=== PATIENT | female | born 1960 | race Caucasian/White ===

== ENCOUNTER → 2020-11-10 12:50 | Outpatient (BNVA) | payer MEDICAID, SELFPAY | PROVIDERS: PCP Internal Medicine; Visit Provider Physician Assistant ==

== ENCOUNTER → 2020-11-16 08:17 | Outpatient (BNVA) | payer MEDICAID, SELFPAY | PROVIDERS: PCP Internal Medicine; Visit Provider Surgery ==

== ENCOUNTER → 2020-11-23 08:02 | Outpatient (BNVA) | payer MEDICAID, SELFPAY | PROVIDERS: PCP Internal Medicine; Visit Provider Surgery ==

== ENCOUNTER 2020-12-03 07:51 | Outpatient (REF) | payer MEDICAID, SELFPAY ==
--- NOTE | ~2020-12-03 | US_ITS ---
EXAMINATION: US COMPLETE ABDOMEN WITH LIVER ELASTOGRAPHY CLINICAL INFORMATION: Morbid/severe obesity due to excess calories. COMPARISON: None. TECHNIQUE: Real-time imaging of the abdominal viscera. Noninvasive ultrasound liver fibrosis assessment is performed using Negar ElastPQ point quantification shear wave elastography (pSWE) with a C5-2 MHz transducer. Multiple elastography samples are obtained. FINDINGS: PANCREAS: Normal. The visualized pancreatic head and body are normal in appearance. The remainder of the pancreas is obscured from visualization by the overlying bowel gas. ABDOMINAL AORTA: The proximal, middle, and distal aortic segments are normal in caliber. INFERIOR VENA CAVA: Visualized portions are normal. LIVER: Normal. The liver demonstrates normal size, contour and diffuse increased echogenicity. There is an anechoic cyst measuring 2.8 x 2.4 x 2.8 cm. The right lobe measures 21.5 cm in length. The left lobe measures 9.3 cm in length. Portal flow is hepatopedal. Shear wave liver elastography median stiffness is 1.1 m/s (reference: normal median stiffness is 1.3 m/s or less). IQR/median stiffness to assess sampling precision is 0.16 (reference: good quality data set is IQR/median stiffness of 0.15 or less). GALLBLADDER: Normal. The gallbladder is physiologically distended without evidence of stones, sludge, polyps, wall thickening or pericholecystic fluid. COMMON BILE DUCT: Normal in caliber measuring 0.4 cm in diameter. RIGHT KIDNEY: Normal. No hydronephrosis. No renal calculi or focal parenchymal lesions. The kidney measures 11.9 cm in maximum dimension. LEFT KIDNEY: Normal. No hydronephrosis. No renal calculi or focal parenchymal lesions. The kidney measures 12.3 cm in maximum dimension. SPLEEN: Normal. The spleen measures 13.5 cm in maximum dimension. FREE FLUID: None. US/US abdomen comp w elastography IMPRESSION: 1. Hepatic steatosis with anechoic cyst right hepatic lobe. 2. The rest of the abdominal ultrasound is unremarkable. 3. Liver elastography: Median stiffness measures 1.1 m/s suggestive of high probability normal. REFERENCE: Society of Radiologists in Ultrasound Liver Stiffness Thresholds (2020): LIVER STIFFNESS THRESHOLDS: *Liver Stiffness equal or less than 1.3 m/s: High probability of being normal. *Liver Stiffness less than 1.7 m/s: In the absence of other known clinical signs, rules out compensated advanced chronic liver disease. *Liver Stiffness 1.7-2.1 m/s: Suggestive of compensated advanced chronic liver disease but need further test for confirmation. *Liver Stiffness over 2.1 m/s: Rules in compensated advanced chronic liver disease. *Liver Stiffness over 2.4 m/s: Suggestive of clinically significant portal hypertension. QUALITY OF DATA SET: *IQR/Median value equal or less than 0.15 implies a quality data set. *IQR/Median value over 0.15 implies a poor quality data set. SIGNIFICANT CHANGE FROM PRIOR EXAM: Significant change if liver stiffness measurement is 10% or greater from prior exam. OTHER CONSIDERATIONS: The stage of liver fibrosis may be overestimated in the setting of acute hepatitis, liver inflammation, elevated liver function tests, hepatic vascular congestion, obstructive cholestasis, non-fasting state, and infiltrative diseases such as amyloidosis and lymphoma. In some patients with NAFLD, the liver stiffness thresholds for compensated advanced chronic liver disease may be lower. In causes other than viral hepatitis and NAFLD, liver stiffness thresholds are not well established.
--- NOTE | ~2020-12-03 | XR_ITS ---
EXAMINATION: XR CHEST CLINICAL INFORMATION: Morbid obesity due to excess calories. COMPARISON: None TECHNIQUE: 2 views of the chest were obtained. FINDINGS: The lungs are well expanded. There is no focal consolidation, edema, or effusion. No pneumothorax. The cardiomediastinal silhouette is within normal limits. No acute osseous abnormality. XR/XR chest 2V IMPRESSION: Clear lungs.
--- NOTE | 2020-12-03 08:40 | ECG_ITS ---
Test Reason : E66.01 Blood Pressure : / mmHG Vent. Rate : 066 BPM Atrial Rate : 066 BPM P-R Int : 202 ms QRS Dur : 090 ms QT Int : 414 ms P-R-T Axes : 035 -09 028 degrees QTc Int : 434 ms Normal sinus rhythm Normal ECG No previous ECGs available Referred By: Bo Ludwig Electronically Signed By:Keyur Duggan
[2020-12-03 09:53] LABS: MANUAL DIFF FLAG NO
[2020-12-03 10:03] LABS: Basophils Percent Auto 0.7 % (0-2); Eosinophils Absolute Auto 0.2 X10*3/uL (0.0-0.4); Eosinophils Percent Auto 3.8 % (0-4); Hematocrit 40.9 % (37-47); Hemoglobin 13.7 g/dl (12.0-16.0); Imm Gran Abs Auto 0.01 X10*3/uL (0.00-0.03); Imm Gran Pct Auto 0.2 % (0.0-0.4); Lymphocytes Percent Auto 16.3 % (20-40); Mean Corpuscular HGB Conc 33.5 g/dl (31.0-35.0); Mean Corpuscular Hemoglobin 32.2 pg (27.0-33.0); Mean Corpuscular Volume 96.2 fL (80-98); Monocytes Absolute Auto 0.5 X10*3/uL (0.1-1.2); Monocytes Percent Auto 7.9 % (2-11); Neutrophils Absolute Auto 4.3 X10*3/uL (2.0-8.3); Neutrophils Percent Auto 71.1 % (45-73); Platelet Count 233 X10*3/uL (160-400); Red Blood Count 4.25 X10*6/uL (4.20-5.50); Red Cell Distribution Width 12.7 % (11.0-16.0); White Blood Count 6.1 X10*3/uL (4.8-10.8)
[2020-12-03 10:25] LABS: Alanine Aminotransferase 37 U/L (0-31); Albumin Level 4.6 g/dL (3.5-5.0); Alkaline Phosphatase 39 U/L (39-117); Anion Gap 16 (12-20); Aspartate Amino Transferase 24 U/L (5-31); Bilirubin Total 0.7 mg/dL (0.0-1.0); Blood Urea Nitrogen 30 mg/dL (9-16); C Reactive Protein 0.46 mg/dL (< or = 0.50); Calcium 9.3 mg/dL (8.4-10.2); Carbon Dioxide 26 mmol/L (22-29); Chloride 105 mmol/L (96-108); Cholesterol 207 mg/dL; Estimated Glomerular Filt Rate > 60; Glucose Random 95 mg/dL (60-115); HDL Cholesterol 50 mg/dL; LDL Cholesterol Calculated 142 mg/dl; Sodium 143 mmol/L (135-145); Total Protein 7.6 g/dL (6.5-8.0); Triglycerides 78 mg/dL
[2020-12-03 10:54] LABS: Estimated Average Glucose 105 mg/dL; Hemoglobin A1c % 5.3 %
[2020-12-03 11:00] LABS: Vitamin D 25-OH Total 26.1 ng/mL (>30)
[2020-12-03 11:21] LABS: Folate 14.8 ng/mL (> or = 4.0); Vitamin B12 203 pg/mL (200-900)
[2020-12-03 11:30] LABS: Ferritin 501 ng/mL (10-250)
[2020-12-04 07:02] LABS: Insulin Level Total 24.8 uIU/mL
[2020-12-04 18:21] LABS: Calcium (PTHI) 9.1 mg/dL (8.6-10.4); PTHI 41 pg/mL (14-64)
[2020-12-07 00:57] LABS: Zinc 61 mcg/dL (60-130)
[2020-12-07 06:27] LABS: Vitamin B1 7 nmol/L (8-30)
[2020-12-07 12:21] LABS: Vitamin A 49 mcg/dL (38-98)
== END 2020-12-03 07:52 | disposition home or self-care (01) ==
LOC: HO.US 07:51
PROVIDERS: PCP Internal Medicine; Visit Provider Surgery
DX: Z01.818 Encounter for other preprocedural examination (principal); E66.01 Morbid (severe) obesity due to excess calories; K21.9 Gastro-esophageal reflux disease without esophagitis; I10 Essential (primary) hypertension; G35 Multiple sclerosis
CPT/HCPCS: 36415; 71046; 76705; 76981; 80053; 80061; 82306; 82607; 82728; 82746; 83036; 83525; 83970; 84425; 84443; 84590; 84630; 85025; 86140; 93005

== ENCOUNTER → 2020-12-14 08:07 | Outpatient (BNVA) | payer MEDICAID, SELFPAY | PROVIDERS: PCP Internal Medicine; Visit Provider Surgery ==

== ENCOUNTER → 2020-12-21 09:02 | Outpatient (BNVA) | payer MEDICAID, SELFPAY | PROVIDERS: PCP Internal Medicine; Visit Provider Dietitian, Registered | DX: E66.9 Obesity, unspecified (principal); Z68.38 Body mass index [BMI] 38.0-38.9, adult | CPT/HCPCS: 97802 ==

== ENCOUNTER 2020-12-22 09:06 | Outpatient (REF) | payer MEDICAID, SELFPAY ==
[2020-12-23 14:31] LABS: H Pylori Breath Test NOT DETECTED (NOT DETECTED)
== END 2020-12-22 09:07 | disposition home or self-care (01) ==
LOC: HO.LNP 09:06
PROVIDERS: Surgery; PCP Internal Medicine; Visit Provider Physician Assistant
DX: A04.8 Other specified bacterial intestinal infections (principal)
CPT/HCPCS: 83013; 99211

== ENCOUNTER → 2021-01-04 08:15 | Outpatient (BNVA) | payer MEDICAID, SELFPAY | PROVIDERS: PCP Internal Medicine; Visit Provider Surgery ==

== ENCOUNTER → 2021-01-22 13:22 | Outpatient (BNVA) | payer MEDICAID, SELFPAY | PROVIDERS: PCP Internal Medicine; Visit Provider Physician Assistant ==

== ENCOUNTER → 2021-01-25 08:13 | Outpatient (BNVA) | payer MEDICAID, SELFPAY | PROVIDERS: PCP Internal Medicine; Visit Provider Surgery ==

== ENCOUNTER → 2021-02-03 08:22 | Outpatient (BNVA) | payer MEDICAID, SELFPAY | PROVIDERS: PCP Internal Medicine; Visit Provider Surgery ==

== ENCOUNTER 2022-04-18 08:39 | Outpatient (REF) | payer MEDICAID, SELFPAY ==
--- NOTE | 2022-04-18 11:05 | MHC.AU.ANH ---
Adult Audiological Evaluation Date of Visit: 04/18/22 Reason for Appointment: Patient began noticing hearing loss around 10 years ago. She received her first pair of hearing aids about 7 years ago. Patient was officially diagnosed with Multiple Sclerosis (MS) about 3 years ago, after many years of symptoms. It is believed the hearing loss may be related to the MS. Ear History: Ear Deformity: None Reported Recent Ear Drainage: None Reported Recent Ear Pain: None Reported Family History of Hearing Loss?: Yes: Grandmother Recent Ear Infections: None Reported Ear Infections in Childhood: None Reported Bothersome Tinnitus/Ringing/Noises in Ears: Both Ears Ear used on the phone: Right Ear Blocked/Full Sensation in Ear(s): None Reported History of occupational noise exposure?: No History: No Medical History: Multiple Sclerosis, Hypertension, Migraines Otoscopy: Right Ear: Unremarkable Left Ear: Unremarkable Tympanometry: Tympanometry performed due to: To assess integrity of the middle ear system Right Ear: Normal Middle Ear System (Type A) Left Ear: Normal Middle Ear System (Type A) Hearing Evaluation: Transducer(s) Used: Insert Earphones Method: Conventional Audiometry Stimuli Used: Pure Tones Right Ear: Description of Hearing: Normal sloping to moderately-severe sensorineural hearing loss Left Ear: Description of Hearing: Normal sloping to moderately-severe sensorineural hearing loss Speech Recognition Threshold (SRT): Method Used: Recorded Lists Stimuli Used: Spondee Words Right Ear: 30 dBHL Left Ear: 30 dBHL Word Discrimination: Method: Recorded Lists Word Lists Used: W-22 Right Ear: 84% at 65 dBHL Left Ear: 92% at 60 dBHL Most Comfortable Level (MCL): Right Ear: 65 dBHL Left Ear: 60 dBHL Recommendations: Audiological re-evaluation in one year. Patient reports she has been unable to use her hearing aids recently because one side stopped working. When she wears only one hearing aid, she feels off-balance. They are an approximately 7 year old pair of ReSound RICs. New hearing aid options were discussed. See Hearing Aid Evaluation report for more information. Diagnosis: Primary Diagnosis: H90.3 Bilateral Sensorineural Hearing Loss Signature: Provider: Puma Perez, CCC-A
--- NOTE | 2022-04-18 11:06 | MHC.AU.HAS ---
Hearing Aid Evaluation Date of Visit: 04/18/22 Historical Information: Description of Hearing: Normal sloping to moderately-severe sensorineural hearing loss bilaterally Current personal amplification information, if applicable: A pair of ReSound RICs, approximately 7 years old Summary: Patient was seen for audiological evaluation (see separate report for details). She received a pair of ReSound RICs approximately 7 years ago. She has not been able to wear them recently, as one side stopped working. She felt too off-balance wearing only one side. She is interested in a new pair of instruments. Hearing Aid Prescription: Based on the individual?s shared listening needs, communication environments, dexterity, desire for connectivity, and personal preferences, the following prescription for amplification has been made: Right ear: Sports Reporter: ReSound Model: One 7 Battery Size: Rechargeable Color: Bronze Showroom Salesperson: 2MP Left ear: Sports Reporter: ReSound Model: One 7 Battery Size: Rechargeable Color: Bronze Showroom Salesperson: 2MP Action Taken/Action Needed: Medical Clearance to be requested from PCP/ENT Hearing Instrument Fitting to be scheduled when materials arrive Primary Diagnosis: H90.3 Bilateral Sensorineural Hearing Loss Signature: Provider: Puma Perez, CCC-A
--- NOTE | 2022-04-18 11:06 | MHC.AU.MED ---
Medical Clearance for Hearing Instrumentation Date: 04/18/22 Patient Name: Lsahay Terrell Date of : 1960 Referring Provider: Uli Hermosillo MD We have seen your patient on 04/18/22 and have determined that they are a candidate for amplification (See accompanying report). Specifically, they would benefit from: Hearing aid use in both ears There is a statute that addresses Medical Evaluation Requirements prior to fitting a patient with a hearing aid. According to [place] statute [facility] CMR:6.03(1), (a) General. Except as provided in 265 CMR 6.03(1)(b), a health technician hearing shall not sell a hearing aid unless the prospective user has presented to the health technician hearing a written statement signed by a licensed physician that states that the patient's hearing loss has been medically evaluated and the patient may be considered a candidate for a hearing aid. The medical evaluation must have taken place within the preceding six months. Please note: Due to the [place] Statute referenced above, we cannot accept a signature other than that of a licensed physician. REVIEW RN and PA signatures cannot be accepted. I am in agreement with the above recommendation. There is no medical contraindication for hearing instrumentation. Physician Signature Date Physician Name (Printed)
== END 2022-04-18 08:40 | disposition home or self-care (01) ==
LOC: HO.SH 08:39
PROVIDERS: Visit Provider Internal Medicine
DX: H90.3 Sensorineural hearing loss, bilateral (principal)
CPT/HCPCS: 92557; 92567; 92591

== ENCOUNTER 2022-06-23 13:16 | Outpatient (REF) | payer MEDICAID, SELFPAY ==
--- NOTE | 2022-06-23 14:47 | MHC.AU.HFA ---
Hearing Instrument Fitting- Adult- Binaural Date of Visit: 06/23/2022 Hearing Instruments Dispensed: Right Ear: Bowl Turner: GNResound One 7 SN [id number] Repair Warranty: 06/13/2025 Loss and Damage Warranty: 06/13/2025 for hearing aids, 06/13/2023 for appraisal analyst Service Plan: 06/23/2023 Battery Size: Rechargeable Color: Bronze Instructor Weaving: 2MP Type of Mold: Medium Open Dome Type of Wax Guard: ReSound Left Ear: Bowl Turner: ReSound Model: One 7 Serial Number: GN Resound One 761-DRWC SN [id number] Repair Warranty: 06/13/2025 Loss and Damage Warranty: 06/13/2025 for hearing aids, 06/13/2023 for appraisal analyst Service Plan: 06/23/2023 Battery Size: Rechargeable Color: Bronze Instructor Weaving: 2MP Type of Mold: Medium Open Dome Type of Wax Guard: ReSound Summary of Fitting: Feedback calibration run. Verifit performed and levels adjusted to better reach targets. Patient was pleased with the sound of the instruments and did not feel any additional programming changes were necessary at this time. Hearing aid care and use were discussed and practiced. Hearing aids paired to her phone and to the ReSound miriam. Recommendations: Patient is an experienced hearing aid user. She will call for follow-up as needed. Diagnosis Code(s): Primary Diagnosis: H90.3 Bilateral Sensorineural Hearing Loss Signature: Provider: Shubham Perez, [facility]
== END 2022-06-23 13:17 | disposition home or self-care (01) ==
LOC: HO.HAP 13:16
PROVIDERS: Visit Provider Internal Medicine
DX: Z46.1 Encounter for fitting and adjustment of hearing aid (principal); H90.3 Sensorineural hearing loss, bilateral
CPT/HCPCS: V5011; V5020; V5160; V5261

== ENCOUNTER 2024-12-31 13:46 | Outpatient (REF) | payer SELFPAY ==
--- OUTSIDE RECORDS SUMMARY | 2024-12-31 15:56 | XMS_ITS | Clinical Summary ---
Author Organization [facility] it Address [address] [place] [address] Care Team Providers Care Laydown Machine Operator Name Role Phone Uli Hermosillo MD Primary Care Provider [phone] Social History Tobacco Use Types Packs/Day Years Used Date Smoking Tobacco: Never Smokeless Tobacco: Never Alcohol Use Standard Drinks/Week Comments Never 0 (1 standard drink = 0.6 oz pur e alcohol) Comments Unknown Sex and Gender Information Value Date Recorded Sex Assigned at Not on file Legal Sex Female 5:55 PM EST Gender Identity Not on file Sexual Orientation Not on file Obstetrics History Last Filed Vital Signs Vital Sign Reading Time Taken Comments Blood Pressure - - Pulse - - Temperature - - Respiratory Rate - - Oxygen Saturation - - Inhaled Oxygen Concentration - - Weight 113 kg (249 lb) 11/28/2022 2:32 PM EDT Height 167.6 cm (5' 6 ) 11/28/2022 2:32 PM EDT Body Mass Index 40.19 11/28/2022 2:32 PM EDT Plan of Treatment Health Maintenance Due Date Last Done Comments Breast Cancer Screening 1960 DTaP,Tdap,and Td Vaccines (1 - Tdap) 1981 Cervical Cancer Screening: P ap Smear 1983 Pneumococcal Vaccine: 50+ Ye ars (1 of 1 - PCV) 2012 Zoster Vaccines (1 of 2) 2012 Colorectal Cancer Screening: Colonoscopy 08/14/2022 Depression Screening 08/14/2022 HIV Screening 08/14/2022 Hepatitis C Screening 08/14/2022 Social Influencers of Health Screening 08/14/2022 RSV Immunization Adult Patie nts (1 - Risk 60-74 years 1-dose series) 2022 COVID-19 Vaccine ( - 2023-2 5 season) 2024 Influenza Vaccine (Season Ended) 2025 HIB Vaccines Aged Out No longer eligi ble based on patient's age to complete this topic HPV Vaccines Aged Out No longer eligi ble based on patient's age to complete this topic Hepatitis A Vaccines Aged Out No long er eligible based on patient's age to complete this topic Hepatitis B Vaccines Aged Out No long er eligible based on patient's age to complete this topic IPV Vaccines Aged Out No longer eligi ble based on patient's age to complete this topic MMR Vaccines Aged Out No longer eligi ble based on patient's age to complete this topic Meningococcal ACWY Vaccine Aged Out N o longer eligible based on patient's age to complete this topic Meningococcal B Vaccine Aged Out No l onger eligible based on patient's age to complete this topic Pneumococcal Vaccine: Pediat rics (0 to 5 Years) and At-Risk Patients (6 to 64 Years) Aged Out No longer eligible b ased on patient's age to complete this topic RSV Immunization Patients Un ada 20 months Aged Out No longer eligible b ased on patient's age to complete this topic Varicella Vaccines Aged Out No longer eligible based on patient's age to complete this topic Care Teams Laydown Machine Operator Relationship Specialty Start Date End Date Uli Hermosillo MD [address] [place] [address] PCP - General Internal Medicine 06/15/21
== END 2024-12-31 13:47 | disposition home or self-care (01) ==
LOC: HO.HAP 13:46
PROVIDERS: PCP Student in an Organized Health Care Education/Training Program; Visit Provider Student in an Organized Health Care Education/Training Program
DX: Z13.89 Encounter for screening for other disorder (principal)

== ENCOUNTER 2025-03-12 15:41 | Outpatient (REF) | payer SELFPAY ==
--- OUTSIDE RECORDS SUMMARY | 2025-03-12 15:43 | XMS_ITS | Clinical Summary ---
Author Organization [facility] it Address [address] [place] [address] Care Team Providers Care Standards Analyst Name Role Phone Uli Hermosillo MD Primary Care Provider [phone] Social History Tobacco Use Types Packs/Day Years [...] 1-dose series) 2022 COVID-19 Vaccine ( - 2024-2 5 season) 2024 Influenza Vaccine (#1) 2025 HIB Vaccines Aged Out No longer [...] 5 Years) and At-Risk Patients (6 to 49 Years) Aged Out No longer eligible b ased on patient's age to complete this topic RSV Immunization Patients Un ada 20 months Aged Out No longer eligible b ased on patient's age to complete this topic Varicella Vaccines Aged Out No longer eligible based on patient's age to complete this topic Care Teams Standards Analyst Relationship Specialty Start Date End Date Uli Hermosillo MD [address] [place] [address] PCP - General Internal Medicine 06/15/21
--- NOTE | 2025-03-12 17:01 | MHC.AU.HA3 ---
Hearing Instrument Follow-Up- Binaural Date of Visit: 03/12/25 Right Ear: Make, Model, Color, Serial Number: GN Resound One [id number] SN: [id number] Color: Bronze [employer]cery Store Courtesy Clerk Repair Warranty: 06/13/2025 Grocery Store Courtesy Clerk Loss and Damage Warranty: 06/13/2025 [facility] Service Plan: 06/23/2023 Battery Size: Rechargeable Aerospace Assembler/Slim Tube: 2MP Earmold/Dome/CShell/SlimTip:Medium Open Dome Type of Wax Guard: ReSound Dispensed By: [facility] Date of Fittin06/23/2022 Left Ear: Make, Model, Color, Serial Number: GN Resound One 761-[id number] SN: [id number] Color: Bronze [employer] Store Courtesy Clerk Repair Warranty: 06/13/2025 [employer]cery Store Courtesy Clerk Loss and Damage Warranty: 06/13/2025 [facility] Service Plan: 06/23/2023 Battery Size: Rechargeable Aerospace Assembler/Slim Tube: 2MP Earmold/Dome/CShell/SlimTip: Medium Open Dome Type of Wax Guard: ReSound Dispensed By: [facility] Date of Fittin06/23/2022 Follow-Up Summary: Walk-in (could not find phone number to call), inquiring about HAs which went out for repair on 01/01/2025. See previous notes in chart re: delivery. Able to be seen - programmed loaners. Called [employer] - they will send replacements at no charge. Recommendations: Patient will be contacted when materials have arrived. Diagnosis Code(s): Primary Diagnosis: H90.3 Bilateral Sensorineural Hearing Loss Signature: Provider: Shubham Lacey, [facility]
== END 2025-03-12 15:42 | disposition home or self-care (01) ==
LOC: HO.HAP 15:41
PROVIDERS: Visit Provider Student in an Organized Health Care Education/Training Program
DX: Z13.89 Encounter for screening for other disorder (principal)

== ENCOUNTER 2025-03-20 11:34 | Outpatient (REF) | payer SELFPAY ==
--- OUTSIDE RECORDS SUMMARY | 2025-03-20 12:25 | XMS_ITS | Clinical Summary ---
Author Organization [facility] it Address [address] [place] [address] Care Team Providers Care Children Counselor Name Role Phone Uli Hermosillo MD Primary Care Provider [phone] Social History Tobacco Use Types Packs/Day Years [...] - 2023-2 5 season) 2024 Influenza Vaccine (#1) 2025 [...] complete this topic RSV Immunization Patients Un aad 20 months Aged Out No longer eligible b ased on patient's age to complete this topic Varicella Vaccines Aged Out No longer eligible based on patient's age to complete this topic Care Teams Children Counselor Relationship Specialty Start Date End Date Uli Hermosillo MD [address] [place] [id number] PCP - General Internal Medicine 06/15/21
== END 2025-03-20 11:35 | disposition home or self-care (01) ==
LOC: HO.HAP 11:34
PROVIDERS: Visit Provider Student in an Organized Health Care Education/Training Program
DX: Z46.1 Encounter for fitting and adjustment of hearing aid (principal); H90.3 Sensorineural hearing loss, bilateral
CPT/HCPCS: 92593